=== PATIENT | female | born 1965 | race Caucasian/White ===

== ENCOUNTER 2020-04-28 11:23 | Outpatient (CLI) | payer OTHER | END 2020-04-28 11:24 | disposition home or self-care (01) | LOC: SONOGRAMA 11:23 | PROVIDERS: ATTEND Pathology Anatomic Pathology & Clinical Pathology | DX: E04.2 Nontoxic multinodular goiter (principal) ==

== ENCOUNTER 2020-08-21 06:00 | Day surgery (SDC) | payer OTHER | END 2020-08-21 11:00 | disposition home or self-care (01) | LOC: AMB-ENDOS 06:00 | PROVIDERS: ATTEND Surgery | DX: D12.3 Benign neoplasm of transverse colon (principal); Z20.828 Contact with and (suspected) exposure to other viral communicable diseases ==